=== PATIENT | female | born 1965 | race Caucasian/White ===

== ENCOUNTER 2019-11-09 11:06 | Day surgery (SDC) | payer BC ==
[2019-11-06 15:09] VITALS: BMI 27.4
[2019-11-09] MEDS ORDERED: BUPIVACAINE HCL/PF 2.5 MG/ML - 30 ML VIAL IJ ONE ×2 (14:26→15:05)
[2019-11-09] MEDS ORDERED: MIDAZOLAM HCL 2 MG/2 ML SINGLE DOSE VIAL ONE (14:30)
[2019-11-09] MEDS ORDERED: oxyCODONE HCL 5 MG TABLET PO PRN ×2 (15:39)
[2019-11-09] MEDS ORDERED: PROMETHAZINE HCL 25 MG/1 ML VIAL IVPUSH PRN (15:39)
[2019-11-09] MEDS ORDERED: ONDANSETRON 4 MG/2 ML VIAL IVPUSH PRN (15:39)
--- NOTE | 2019-11-09 15:59 | OP ---
DATE OF OPERATION: 11/09/2019 Done at [facility] SURGEON: Jeff Mercedes MD STARTING GATE DRIVER: JESSICA Handy PREOPERATIVE DIAGNOSES: 1. Left knee medial and lateral meniscal tear. 2. Left knee cartilage injury. 3. Left knee synovitis. POSTOPERATIVE DIAGNOSES: 1. Left knee medial and lateral meniscal tear. 2. Left knee cartilage injury. 3. Left knee synovitis. PROCEDURE: 1. Left knee arthroscopy with partial meniscectomy medial and lateral meniscus, CPT code 19785. 2. Right knee arthroscopy with chondroplasty and abrasion-plasty, CPT code 00153. 3. Right knee arthroscopy with synovectomy, CPT code 58591. FINDINGS: 1. Medial meniscus [id number] horn tear inner 1/3. 2. Lateral meniscus posterior horn tear. 3. Synovitis patellofemoral medial and lateral notch area. 4. Central grade 2 cartilage injury medial femoral condyle. 5. ACL and PCL intact. 6. Minor grade 1-2 changes anterior lateral tibial plateau. 7. Superior 50% patella with grade 3-4 changes and a large cartilage flap patellofemoral trochlea grade 2-3 changes with anterior grade 4 changes patellofemoral trochlea. DESCRIPTION OF PROCEDURE: Informed consent was obtained. The patient came to the operating room, where the lower extremity was prepped and draped in a sterile fashion. A tourniquet was placed on the upper thigh, but not inflated. Using standard arthroscopic technique, a lateral incision and portal was made to allow for introduction of the camera into the suprapatellar bursa. This was then taken to the medial joint line, where under direct visualization, a medial incision and portal was made. Excessive synovium noted in the medial, lateral and patellofemoral and notch area was removed by an upbiter, shaver and Bovie cautery. This was found to bring in inflammatory tissue into the joint surface, a source of pain and dysfunction. Probing of the medial and lateral meniscus found tears, as described in the findings. These were removed with the upbiter and shaver and taken back to a stable rim. Grade 2 to 3 degenerative changes were treated with a chondroplasty, removing all flaking surfaces with low-setting Bovie along the periphery to prevent further flaking. Grade 4 changes, as noted, were treated with an abrasoplasty, creating a bleeding surface at the bone/cartilage interface. Aggressive debridement with shaver/wali created bleeding surface. Micro fracture also done when indicated in findings. All areas of the knee were once again reexamined. The knee was then drained and a single suture was placed in all portals. A sterile dressing was placed and the patient was transferred to the recovery room without complication. The PA listed above was present and assisted at surgery. Their presence was absolutely medically necessary for the completion of the procedure. They helped hold the arthroscopy, pass instruments (and implants when indicated) and the procedure could not have been completed without their assistance. JEFF MERCEDES M.D. [id number]
[2019-11-09 17:37] VITALS: BP 99/57; PULSE 66; TEMP 97.9
--- NOTE | 2019-11-15 15:23 | PATH ---
Surgical Pathology Report Patient Name: PETER BAILEY Med. Rec. #: [id number] /Age/Gender: 1965 (Age: 53) / F Account: [id number] Location: ON LICENSE OF [facility] AMBULATORY Taken: 11/09/2019 Received: 11/09/2019 Reported: 11/15/2019 Physicians: Jeff Acosta M.D. Specimen(s) Received SHAVINGS LEFT KNEE Clinical History Left knee impingement Final Diagnosis KNEE, RIGHT, ARTHROSCOPIC SHAVINGS: FIBROSYNOVIAL TISSUE AND CARTILAGE. Electronically Signed Ruchi Navarro M.D. Gross Description Received in formalin, labeled "left knee shavings," is a 4.0 x 3.0 x 0.3 cm. aggregate of staton-yellow soft tissue fragments. A sales representative business courses portion is submitted in one cassette. 11/13/2019 [facility]
== END 2019-11-09 17:37 | disposition home or self-care (01) ==
LOC: FASU 11:06
PROVIDERS: ATTEND Orthopaedic Surgery
PROC: 0SBD4ZZ Excision of Left Knee Joint, Percutaneous Endoscopic Approach (ICD-10-PCS; 2019-11-09)
PROC: 0SBD4ZZ Excision of Left Knee Joint, Percutaneous Endoscopic Approach (ICD-10-PCS; 2019-11-09)
PROC: 0SBD4ZZ Excision of Left Knee Joint, Percutaneous Endoscopic Approach (ICD-10-PCS; principal; 2019-11-09 14:33)
DX: S83.242A Other tear of medial meniscus, current injury, left knee, initial encounter (principal); S83.282A Other tear of lateral meniscus, current injury, left knee, initial encounter; S83.8X2A Sprain of other specified parts of left knee, initial encounter; M65.862 Other synovitis and tenosynovitis, left lower leg; X58.XXXA Exposure to other specified factors, initial encounter; Y93.9 Activity, unspecified; Y92.9 Unspecified place or not applicable
CPT/HCPCS: 94760

== ENCOUNTER 2020-04-18 06:11 | Day surgery (SDC) | payer BC ==
[2020-04-15 15:30] VITALS: BMI 27.4
[2020-04-18] MEDS ORDERED: BUPIVACAINE HCL/PF 2.5 MG/ML - 30 ML VIAL IJ ONE (07:07)
[2020-04-18] MEDS ORDERED: EPINEPHrine 1:1,000 1 MG/1 ML - 30ML VIAL (INJECTION) ONE (07:07)
[2020-04-18] MEDS ORDERED: PROPOFOL 20 ML ONE ×2 (07:21→08:03)
[2020-04-18] MEDS ORDERED: SUCCINYLCHOLINE CHLORIDE 200 MG/10 ML SYRINGE ONE (07:21)
[2020-04-18] MEDS ORDERED: MIDAZOLAM HCL 2 MG/2 ML SINGLE DOSE VIAL ONE (07:27)
[2020-04-18] MEDS ORDERED: ONDANSETRON 4 MG/2 ML VIAL IVPUSH PRN (07:33)
[2020-04-18] MEDS ORDERED: oxyCODONE HCL 5 MG TABLET PO PRN ×2 (07:33)
[2020-04-18] MEDS ORDERED: LACTATED RINGERS SOLUTION 1,000 ML IV SCH (07:45)
[2020-04-18] MEDS ORDERED: BUPIVACAINE HCL/PF 0.25% (2.5MG/ML) 10 ML VIAL IJ ONE ×2 (08:20→08:25)
[2020-04-18] MEDS ORDERED: EPHEDRINE SULFATE/0.9% NACL/PF 50 MG/10 ML SYRINGE NR ONE (08:21)
[2020-04-18] MEDS ORDERED: ONDANSETRON 4 MG/2 ML VIAL ONE (08:47)
[2020-04-18] MEDS ORDERED: PROMETHAZINE HCL 25 MG/1 ML VIAL ONE (08:53)
[2020-04-18] MEDS: PROMETHAZINE HCL 25 MG/1 ML VIAL IVPUSH PRN ×2 (08:55→09:30)
[2020-04-18 14:34] VITALS: TEMP 97.9
[2020-04-18 14:59] VITALS: BP 108/68; PULSE 65
--- NOTE | 2020-04-18 20:06 | OP ---
DATE OF OPERATION: 04/18/2020 LOCATION: [facility]. SURGEON: Jeff Mercedes MD. PRODUCT EXAMINER: JESSICA Handy. PREOPERATIVE DIAGNOSIS: 1. Left knee medial lateral meniscal tear. 2. Left knee cartilage injury. 3. Left knee synovitis. POSTOPERATIVE DIAGNOSIS: 1. Left knee medial lateral meniscal tear. 2. Left knee cartilage injury. 3. Left knee synovitis. PROCEDURE: 1. Left knee arthroscopy, partial meniscectomy medial and lateral meniscus. CPT code 93552. 2. Left knee arthroscopy with chondroplasty and abrasion plasty. CPT code 23739. 3. Left knee arthroscopy synovectomy. CPT code 72374. FINDINGS: 1. Medial meniscus body and posterior horn tear anterior 1/3. 2. Lateral meniscus anterior 1/3 tear complete. 3. Synovitis patellofemoral medial lateral notch area with large medial plication anteriorly. 4. Central grade 3 and 4 changes central 1/3 of medial femoral condyle with large cartilage flap centrally predominantly grade 3 and 4 changes. 5. ACL and PCL intact. 6. changes lateral joint line. 7. Central grade 3-4 cartilage injury central third of patella with cartilage flap 2 cm x 4 cm and grade 1-3 changes central third of patellofemoral trochlea. PROCEDURE: Informed consent was obtained. The patient came to the operating room, where the lower extremity was prepped and draped in a sterile fashion. A tourniquet was placed on the upper thigh, but not inflated. Using standard arthroscopic technique, a lateral incision and portal was made to allow for introduction of the camera into the suprapatellar bursa. This was then taken to the medial joint line, where under direct visualization, a medial incision and portal was made. Excessive synovium noted in the medial, lateral and patellofemoral and notch area was removed by an upbiter, shaver and Bovie cautery. This was found to bring in inflammatory tissue into the joint surface, a source of pain and dysfunction. Probing of the medial and lateral meniscus found tears, as described in the findings. These were removed with the upbiter and shaver and taken back to a stable rim. Grade 2 to 3 degenerative changes were treated with a chondroplasty, removing all flaking surfaces with low-setting Bovie along the periphery to prevent further flaking. Grade 4 changes, as noted, were treated with an abrasoplasty, creating a bleeding surface at the bone/cartilage interface. Aggressive debridement with shaver/wali created bleeding surface. Micro fracture also done when indicated in findings. All areas of the knee were once again reexamined. The knee was then drained and a single suture was placed in all portals. A sterile dressing was placed and the patient was transferred to the recovery room without complication. The PA listed above was present and assisted at surgery. Their presence was absolutely medically necessary for the completion of the procedure. They helped hold the arthroscopy, pass instruments (and implants when indicated) and the procedure could not have been completed without their assistance. JEFF MERCEDES M.D. [id number]
== END 2020-04-18 12:10 | disposition home or self-care (01) ==
LOC: FASU 06:11
PROVIDERS: ATTEND Orthopaedic Surgery
PROC: 0SBD4ZZ Excision of Left Knee Joint, Percutaneous Endoscopic Approach (ICD-10-PCS; 2020-04-18)
PROC: 0SBD4ZZ Excision of Left Knee Joint, Percutaneous Endoscopic Approach (ICD-10-PCS; 2020-04-18)
PROC: 0SBD4ZZ Excision of Left Knee Joint, Percutaneous Endoscopic Approach (ICD-10-PCS; principal; 2020-04-18 08:14)
DX: S83.242A Other tear of medial meniscus, current injury, left knee, initial encounter (principal); S83.282A Other tear of lateral meniscus, current injury, left knee, initial encounter; S83.8X2A Sprain of other specified parts of left knee, initial encounter; M65.862 Other synovitis and tenosynovitis, left lower leg; X58.XXXA Exposure to other specified factors, initial encounter; Y93.9 Activity, unspecified; Y92.9 Unspecified place or not applicable
CPT/HCPCS: 94760

== ENCOUNTER 2021-12-11 17:26 | Emergency (ER) | payer BC ==
[2021-12-11] MEDS ORDERED: MAG HYDROX/AL HYDROX/SIMETH -MYLANTA- ORAL SUSPENSION PO ONE (17:37)
[2021-12-11] MEDS ORDERED: FAMOTIDINE 20 MG TABLET PO ONE (17:37)
[2021-12-11] MEDS ORDERED: LIDOCAINE VISCOUS 2% ORAL/TOP 15 ML UNIT-DOSE CUP MM ONE (17:51)
[2021-12-11] MEDS ORDERED: LIDOCAINE VISCOUS 2% ORAL/TOP 15 ML UNIT-DOSE CUP ONE (17:52)
[2021-12-11] MEDS ORDERED: FAMOTIDINE 20 MG TABLET ONE (17:52)
[2021-12-11] MEDS ORDERED: MAG HYDROX/AL HYDROX/SIMETH 30 ML UNIT-DOSE CUP ONE (17:52)
[2021-12-11 18:05] VITALS: BP 130/74; PULSE 85; TEMP 98; BMI 32.9
[2021-12-11 19:37] LABS: BASO % 0.5 % (0-2.0); EOS % 0.7 % (0-4.5); HEMATOCRIT 40.9 % (32.4-45.2); HEMOGLOBIN 13.9 GM/dL (10.7-15.3); LYMPH % 35.6 % (8-40); MCH 31.4 pg (25.7-33.7); MCHC 34.1 g/dl (32.0-36.0); MEAN CELL VOLUME 92.1 fl (80-96); MEAN PLT VOLUME 9.2 fl (7.5-11.1); MONO % 6.7 % (3.8-10.2); NEUT % 56.5 % (42.8-82.8); PLATELET COUNT 233 10^3/uL (134-434); RBC 4.43 M/mm3 (3.60-5.2); RDW 12.9 % (11.6-15.6); WHITE BLOOD COUNT 7.5 K/mm3 (4.0-10.0)
[2021-12-11 20:02] LABS: BLOOD UREA NITROGEN 13.1 mg/dL (7-18); CALCIUM 8.9 mg/dL (8.5-10.1)
[2021-12-11 20:03] LABS: ALBUMIN 3.6 g/dl (3.4-5.0)
[2021-12-11 20:06] LABS: CREATININE 0.8 mg/dL (0.55-1.3)
[2021-12-11 20:07] LABS: BILIRUBIN,TOTAL 0.8 mg/dL (0.2-1); TOT PROT 7.2 g/dl (6.4-8.2)
== END 2021-12-11 20:37 | disposition home or self-care (01) ==
LOC: FER 17:26
DX: R10.13 Epigastric pain (principal)
CPT/HCPCS: 36415; 80053; 83690; 84484; 85025; 93005; 99284-25

== ENCOUNTER 2022-04-28 21:54 | Inpatient (IN) | payer BC ==
[2022-04-28] MEDS ORDERED: ONDANSETRON 4 MG/2 ML VIAL IVPUSH ONE (22:50)
[2022-04-28] MEDS ORDERED: FAMOTIDINE 20 MG/50 ML IVPB 20 MG/50 ML MG IVPB ONE ×2 (22:50→22:56)
[2022-04-28] MEDS ORDERED: morphine CARPU-JECT 2 MG/1 ML DISP.SYRIN IM ONE (22:50)
[2022-04-28] MEDS ORDERED: SODIUM CHLORIDE 0.9% 500 ML INFUS.BAG IV ONE (22:53)
[2022-04-28] MEDS ORDERED: ONDANSETRON 4 MG/2 ML VIAL ONE (22:56)
[2022-04-28 23:21] LABS: BASO % 0.7 % (0-2.0); EOS % 0.8 % (0-4.5); HEMATOCRIT 41.7 % (32.4-45.2); HEMOGLOBIN 14.4 GM/dL (10.7-15.3); LYMPH % 37.3 % (8-40); MCH 31.3 pg (25.7-33.7); MCHC 34.6 g/dl (32.0-36.0); MEAN CELL VOLUME 90.4 fl (80-96); MEAN PLT VOLUME 8.8 fl (7.5-11.1); MONO % 6.1 % (3.8-10.2); NEUT % 55.1 % (42.8-82.8); PLATELET COUNT 221 10^3/uL (134-434); RBC 4.61 M/mm3 (3.60-5.2); RDW 13.3 % (11.6-15.6); WHITE BLOOD COUNT 9.5 K/mm3 (4.0-10.0)
[2022-04-29] MEDS ORDERED: METOCLOPRAMIDE HCL INJECTION 10 MG/2 ML VIAL ONE (00:34)
[2022-04-29] MEDS ORDERED: METOCLOPRAMIDE HCL INJECTION 10 MG/2 ML VIAL IVPB ONE (00:34)
[2022-04-29] MEDS ORDERED: SODIUM CHLORIDE 0.9% 500 ML INFUS.BAG IV ONE (00:34)
[2022-04-29 01:30] LABS: EPI CELLS 5 /uL (0-25.1); HYALINE CASTS 0 /uL (0-3.1); URINE APPEARANCE CLEAR; URINE BACTERIA 184 /uL (0-1359); URINE BILIRUBIN NEGATIVE (NEGATIVE); URINE COLOR YELLOW; URINE GLUCOSE (UA) NEGATIVE (NEGATIVE); URINE KETONE NEGATIVE (NEGATIVE); URINE LEUK ESTERASE NEGATIVE (NEGATIVE); URINE NITRITE NEGATIVE (NEGATIVE); URINE PROTEIN NEGATIVE (NEGATIVE); URINE RBC 20 /uL (0-23.9); URINE WBC 2 /uL (0-25.8)
[2022-04-29] MEDS ORDERED: NICOTINE 14 MG/24 HOURS TOPICAL PATCH TD STA (01:37)
[2022-04-29 02:04] LABS: ALBUMIN 3.7 g/dl (3.4-5.0); BLOOD UREA NITROGEN 11.3 mg/dL (7-18); CALCIUM 9.3 mg/dL (8.5-10.1)
[2022-04-29 02:07] LABS: CREATININE 0.8 mg/dL (0.55-1.3)
[2022-04-29 02:35] LABS: BILIRUBIN,TOTAL 0.8 mg/dL (0.2-1)
[2022-04-29] MEDS ORDERED: NICOTINE 14 MG/24 HOURS TOPICAL PATCH TD ONE (03:23)
[2022-04-29] MEDS ORDERED: SODIUM CHLORIDE 1,000 ML IV SCH (04:15)
[2022-04-29] MEDS ORDERED: ONDANSETRON 4 MG/2 ML VIAL IVPUSH PRN (06:40)
[2022-04-29 08:12] VITALS: BMI 32.0
[2022-04-29 08:58] LABS: BASO % 0.6 % (0-2.0); EOS % 1.2 % (0-4.5); HEMATOCRIT 36.7 % (32.4-45.2); HEMOGLOBIN 12.6 GM/dL (10.7-15.3); LYMPH % 42.4 % (8-40); MCH 31.7 pg (25.7-33.7); MCHC 34.4 g/dl (32.0-36.0); MEAN CELL VOLUME 91.9 fl (80-96); MEAN PLT VOLUME 9.5 fl (7.5-11.1); MONO % 6.6 % (3.8-10.2); NEUT % 49.2 % (42.8-82.8); PLATELET COUNT 191 10^3/uL (134-434); RDW 13.3 % (11.6-15.6); WHITE BLOOD COUNT 4.4 K/mm3 (4.0-10.0)
[2022-04-29] MEDS: PARoxetine HCL 10 MG TABLET PO SCH (09:45)
[2022-04-29 10:07] LABS: CALCIUM 8.4 mg/dL (8.5-10.1)
[2022-04-29 10:08] LABS: ALBUMIN 3.1 g/dl (3.4-5.0); BLOOD UREA NITROGEN 9.6 mg/dL (7-18)
[2022-04-29 10:11] LABS: CREATININE 0.7 mg/dL (0.55-1.3)
[2022-04-29 10:13] LABS: TOT PROT 5.9 g/dl (6.4-8.2)
[2022-04-29] MEDS ORDERED: PIPERACILLIN/TAZOB 3.375 GM 3.375 GM in DEXTROSE 5%-WATER - 50 ML IVPB SCH (11:00)
[2022-04-29] MEDS: DEXTROSE 5%-0.45% SALINE 1,000 ML IV SCH (11:54)
[2022-04-29 16:53] LABS: INR 0.97 (0.83-1.09); PROTHROMBIN TIME (PATIENT) 11.1 SEC (9.7-13.0)
[2022-04-29] MEDS: PIPERACILLIN/TAZOB 3.375 GM 3.375 GM in DEXTROSE 5%-WATER - 50 ML IVPB SCH (17:22)
[2022-04-30] MEDS: PIPERACILLIN/TAZOB 3.375 GM 3.375 GM in DEXTROSE 5%-WATER - 50 ML IVPB SCH ×3 (01:09→19:15)
[2022-04-30] MEDS: NICOTINE 14 MG/24 HOURS TOPICAL PATCH TD SCH ×2 (01:10→10:52)
[2022-04-30] MEDS ORDERED: INDOMETHACIN 50 MG RECTAL SUPPOSITORY PR ONE (10:00)
[2022-04-30] MEDS: PARoxetine HCL 10 MG TABLET PO SCH (10:52)
[2022-04-30] MEDS: DEXTROSE 5%-0.45% SALINE 1,000 ML IV SCH (11:33)
[2022-04-30 12:17] LABS: BASO % 0.4 % (0-2.0); EOS % 3.3 % (0-4.5); HEMATOCRIT 40.8 % (32.4-45.2); HEMOGLOBIN 13.7 GM/dL (10.7-15.3); LYMPH % 42.1 % (8-40); MCH 31.4 pg (25.7-33.7); MCHC 33.7 g/dl (32.0-36.0); MEAN CELL VOLUME 93.3 fl (80-96); MEAN PLT VOLUME 9.5 fl (7.5-11.1); MONO % 6.6 % (3.8-10.2); NEUT % 47.6 % (42.8-82.8); PLATELET COUNT 193 10^3/uL (134-434); RBC 4.37 M/mm3 (3.60-5.2); RDW 13.6 % (11.6-15.6); WHITE BLOOD COUNT 4.9 K/mm3 (4.0-10.0)
[2022-04-30 12:25] LABS: INR 0.98 (0.83-1.09); PROTHROMBIN TIME (PATIENT) 11.3 SEC (9.7-13.0)
[2022-04-30 12:40] LABS: BLOOD UREA NITROGEN 6.2 mg/dL (7-18); CALCIUM 9.2 mg/dL (8.5-10.1); CREATININE 0.8 mg/dL (0.55-1.3)
[2022-04-30 12:42] LABS: BILIRUBIN,DIRECT 0.3 mg/dL (0.0-0.2)
[2022-04-30 12:46] LABS: ALBUMIN 3.7 g/dl (3.4-5.0)
[2022-04-30 15:22] VITALS: RESP 18
[2022-04-30] MEDS ORDERED: ONDANSETRON 4 MG/2 ML VIAL IVPUSH PRN ×3 (16:43→19:17)
[2022-04-30] MEDS ORDERED: LACTATED RINGERS SOLUTION 1,000 ML IV SCH (16:45)
[2022-04-30] MEDS ORDERED: MIDAZOLAM HCL 2 MG/2 ML SINGLE DOSE VIAL ONE (16:53)
[2022-04-30] MEDS ORDERED: DEXAMETHASONE SOD PHOSPHATE 4 MG/1 ML VIAL ONE (17:06)
[2022-04-30] MEDS ORDERED: DEXTROSE 5%-0.45% SALINE 1,000 ML IV SCH (19:17)
[2022-04-30] MEDS ORDERED: PIPERACILLIN/TAZOB 3.375 GM 3.375 GM in DEXTROSE 5%-WATER - 50 ML IVPB SCH (20:00)
[2022-04-30 20:04] VITALS: BP 127/73; PULSE 59; TEMP 98.1
[2022-05-01 02:09] LABS: FIBROSIS SCORE. 0.46 (0.00-0.21); HCV ALPHA 2 MACRO CHART 145 mg/dL (110-276); NECRO.INFLAM ACT.SCORE 0.95 (0.00-0.17); NECROINFLAM. ACTIVITY GRADE A3-Severe activity (.)
[2022-05-01] MEDS ORDERED: PARoxetine HCL 10 MG TABLET PO SCH (10:00)
[2022-05-01] MEDS ORDERED: NICOTINE 14 MG/24 HOURS TOPICAL PATCH TD SCH (10:00)
== END 2022-04-30 21:00 | disposition short-term general hospital (02) | DRG 694 ==
LOC: JER 21:54 → JERBED 04-29 03:32 → J8W 04-29 05:48
PROVIDERS: ADMIT Internal Medicine; ATTEND Family Medicine
PROC: BT1DZZZ Fluoroscopy of Right Kidney, Ureter and Bladder (ICD-10-PCS; principal; 2022-04-30 16:30)
DX: N13.2 Hydronephrosis with renal and ureteral calculous obstruction (principal); R10.11 Right upper quadrant pain; R11.2 Nausea with vomiting, unspecified; R74.01 Elevation of levels of liver transaminase levels; E66.9 Obesity, unspecified; Z68.32 Body mass index [BMI] 32.0-32.9, adult; K80.50 Calculus of bile duct without cholangitis or cholecystitis without obstruction; F17.210 Nicotine dependence, cigarettes, uncomplicated; K21.9 Gastro-esophageal reflux disease without esophagitis
CPT/HCPCS: 36415; 74176-TC; 74181-TC; 76000-TC-FY; 76705-TC; 80048; 80053; 80076; 81003; 82172; 82977; 83010; 83690; 83883; 84460; 84484; 85025; 85610; 86704; 86705; 86708; 86803; 86850; 86900; 86901; 87086; 87340; 87350; 93005; 93010; 94760; 99285-25; C9803-CS; U0003; U0005